=== PATIENT | male | born 1950 | race Caucasian/White ===

== ENCOUNTER → 2023-09-08 | Outpatient (CLI) | payer MEDICARE ==
--- NOTE | 2023-09-23 05:42 | EST ---
EXERCISE STRESS Patient was monitored between the and August. The rhythm strip revealed a sinus mechanism. The patient had at one 4-complex ventricular tachycardia, short burst of SVT were noted. No atrial fibrillation was noted. No pauses were noted. CAROLYNE / SKIP: [id number] /
== END | disposition home or self-care (01) ==
LOC: RADECHMAIN 08:05
PROVIDERS: ATTEND Family Medicine
DX: I47.10 Supraventricular tachycardia, unspecified (principal)
CPT/HCPCS: 93270